=== PATIENT | female | born 1975 | race Caucasian/White ===

== ENCOUNTER 2017-03-22 19:22 | Emergency (ER) | payer MEDICARE ==
[2017-03-22 20:11] LABS: APPEARANCE CLEAR (CLEAR); COLOR YELLOW (YELLOW)
[2017-03-22 20:12] LABS: BILIRUBIN NEGATIVE (NEGATIVE); GLUCOSE NEGATIVE (NEGATIVE); HCG URINE NEGATIVE (NEGATIVE); KETONE NEGATIVE (NEGATIVE); LEUKOCYTE ESTERASE NEGATIVE (NEGATIVE); NITRITE NEGATIVE (NEGATIVE); PROTEIN NEGATIVE (NEGATIVE); UROBILINOGEN NORMAL (NORMAL)
== END 2017-03-22 21:31 | disposition home or self-care (01) ==
LOC: D.ER 19:22
PROVIDERS: Family Medicine
DX: S39.012A Strain of muscle, fascia and tendon of lower back, initial encounter (principal); W10.9XXA Fall (on) (from) unspecified stairs and steps, initial encounter; Y93.89 Activity, other specified; Y92.89 Other specified places as the place of occurrence of the external cause; F17.200 Nicotine dependence, unspecified, uncomplicated

== ENCOUNTER 2017-08-10 17:30 | Emergency (ER) | payer MEDICAID | END 2017-08-10 20:15 | disposition left against medical advice (07) | LOC: D.ER 17:30 | DX: S99.921A Unspecified injury of right foot, initial encounter (principal); X58.XXXA Exposure to other specified factors, initial encounter; Y93.89 Activity, other specified; Y92.89 Other specified places as the place of occurrence of the external cause ==

== ENCOUNTER 2017-08-11 16:08 | Emergency (ER) | payer MEDICAID | END 2017-08-11 17:57 | disposition home or self-care (01) | LOC: D.ER 16:08 | DX: S93.504A Unspecified sprain of right lesser toe(s), initial encounter (principal); X58.XXXA Exposure to other specified factors, initial encounter; Y93.6A Activity, physical games generally associated with school recess, summer camp and children; Y92.029 Unspecified place in mobile home as the place of occurrence of the external cause; F17.200 Nicotine dependence, unspecified, uncomplicated ==

== ENCOUNTER 2017-09-13 13:47 | Emergency (ER) | payer MEDICAID | END 2017-09-13 16:48 | disposition home or self-care (01) | LOC: D.ER 13:47 | DX: J01.90 Acute sinusitis, unspecified (principal) ==

== ENCOUNTER 2018-04-24 16:10 | Emergency (ER) | payer MEDICAID | END 2018-04-24 17:06 | disposition left against medical advice (07) | LOC: D.ER 16:10 | DX: R10.9 Unspecified abdominal pain (principal) ==